=== PATIENT | female | born 1970 | race Caucasian/White ===

== ENCOUNTER → 2023-10-02 07:52 | Outpatient (REF) | payer OTHER, SELFPAY | LOC: HWRAD 07:52 | PROVIDERS: ATTENDING PHYSICIAN Nurse Practitioner Family | DX: M54.9 Dorsalgia, unspecified (principal); R10.11 Right upper quadrant pain; R10.9 Unspecified abdominal pain; G89.29 Other chronic pain; R07.81 Pleurodynia | CPT/HCPCS: 71111; 72072; 76700 ==

== ENCOUNTER 2024-04-05 23:23 | Emergency (ER) | payer OTHER, SELFPAY ==
[2024-04-05 23:35] VITALS: BP 157/91
[2024-04-06 00:03] VITALS: BP 145/72
[2024-04-06 00:30] LABS: % Basophils 0.7 % (0-2); % Eosinophils 0.8 % (0-6); % Immature Granulocytes 1.1 % (0-0.5); % Lymphocytes 23.6 % (20.5-51.1); % Monocytes 9.5 % (1.7-9.3); % Neutrophils 64.3 % (42.2-75.2); Absolute Basophils 0.1 10^3/uL (0-0.2); Absolute Eosinophils 0.1 10^3/uL (0-0.7); Absolute Immature Granulocytes 0.1 10^3/uL (0-0.05); Absolute Lymphocytes 2.2 10^3/uL (1.2-3.4); Absolute Monocytes 0.9 10^3/uL (0.1-0.6); Absolute Neutrophils 5.9 10^3/uL (1.4-6.5); Hematocrit 38.1 % (37.0-47.0); Mean Corp Hgb Conc. 34.1 g/dL (33.0-37.0); Mean Corpuscular Hgb 29.4 pg (27.0-31.0); Mean Corpuscular Volume 86.2 fL (81.0-99.0); Mean Platelet Volume 10.4 fL (7.4-10.4); Nucleated Red Blood Cells % 0 %; Platelet Count 236 10^3/uL (130-400); Red Blood Cell Count 4.42 10^6/uL (4.20-5.40); Red Cell Dist. Width 12.5 % (11.5-14.5); White Blood Cell Count 9.1 10^3/uL (4.8-10.8)
[2024-04-06 00:39] LABS: ALT (SGPT) 19 U/L (0-35); AST (SGOT) 25 U/L (14-36); Alkaline Phosphatase 55 U/L (38-126); Blood Urea Nitrogen 18 mg/dl (7-17); Calcium 9.5 mg/dl (8.4-10.2); Carbon Dioxide 23 mmol/L (22-30); Chloride 106 mmol/L (98-107); Glucose 102 mg/dl (70-99); Potassium 4.2 mmol/L (3.5-5.1); Sodium 142 mmol/L (135-145); Total Bilirubin 0.5 mg/dl (0.2-1.3); Total Protein 6.7 g/dl (6.3-8.2); eGFR > 60.00
[2024-04-06 00:45] LABS: Troponin I < 0.012 ng/ml
--- NOTE | 2024-04-06 00:57 | ED.GENMED ---
History of Present Illness
General
Chief Complaint: Heart Rate Problem
Source: patient
Exam Limitations: none
Time Seen by Provider: 04/06/24 00:18
History of Present Illness
History of Present Illness:
This is a 53 year old female that comes in with multiple complaints. State that her heart rate over the weekend has been elevated. States that she felt feverish and would then be flushed and sweat. States that today she tested for COVID and this was
negative. States that she went to bed and her heart was beating hard. States that she took her BP and it was 130/ something and her heart rate was 110. States that this is very high for her. States that she waited 10 min and tried this again and it
was still going up. States that when she was playing Pickle ball on Friday she had chest discomfort and SOB. States that this was in the center of her chest but she continued to play. States that her temp was 98.9 and this is a fever for her.
Patient also c/o an indentation on the right shoulder and then a bump. States that she noticed this 2 weeks ago and there is no pain and there was no injury. Denies any chills, abd pain, nausea, vomiting, diarrhea, headache, dizziness, urinary
burning.
Past History
Past History
ED Past Medical History: None; Negative Asthma, HTN, Hypercholesterolemia or NIDDM
ED Past Surgical History: None
Social History
Tobacco: Non-smoker
Alcohol: Occasional
Personal: Single
Living: alone
Review of Systems
Review of Systems
All Other Systems: ROS reviewed and negative except as documented in HPI and ROS
Constitutional: Reports fever and other (Sweats); Denies chills
EENT: Reports no symptoms
Respiratory: Reports trouble breathing; Denies cough
Cardiac: Reports chest pain
ABD/GI: Reports no symptoms; Denies abdominal pain, nausea, vomiting or diarrhea
: Reports no symptoms; Denies dysuria, frequency or urgency
Musculoskeletal: Reports no symptoms
Skin: Reports no symptoms
Neurological: Reports no symptoms; Denies dizzy or headache
Psychiatric: Reports no symptoms
Phy Exam
General Physical Exam
General Presentation: well appearing and no apparent distress
General age: appears stated age
General Skin: warm and dry
General Habitus: normal
General Mental: alert
General Hydration: dry mucous membranes
ENT Exam
ENT Exam: TM's normal, pharynx normal and neck supple
Eye Exam
Eye Exam: EOMI
Cardiovascular Exam
Cardiovascular Exam: regular rate/rhythm, no edema, no murmur and normal peripheral pulses
Pulmonary Exam
Pulmonary Exam: lungs clear, no respiratory distress, no rales, chest non tender, no crackles, no rhonchi, no wheezing and no cough
Gastrointestinal Exam
Gastrointestinal Exam: normal bowel sounds, non tender, soft, no organomegaly, no pulsatile mass and non distended
Musculoskeletal Exam
Musculoskeletal Exam: full ROM, no edema and other (questionable deltoid injury ,Partial tear, Patient can cross over and abduct with out any discomfort.)
Skin Exam
Skin Exam: normal color, warm/dry, no rash and no petechia
Psychiatric Exam
Psychiatric Exam: normal mood/affect
Course
Orders/Labs/Results
Orders:
Orders
04/05/24 23:45
Electrocardiogram (*1) Urgent
Reason for Study: Chest Pain
EKG- Treatment ONCE
04/05/24 23:53
Complete Blood Count/With Diff Urgent
Comprehensive Metabolic Panel Urgent
Troponin I Urgent
04/06/24 00:57
0.9% Sodium Chloride 1000 ml [Nss] 1,000 ml IV BOLUS
CR Chest - 2 Views Urgent
Comment:
Reason For Exam: cHEST PAIN, sob
Abnormal Lab Results
04/06/24
00:05
Abs Immat Gran (auto) 0.1 H 10^3/uL
(0-0.05)
Absolute Monos (auto) 0.9 H 10^3/uL
(0.1-0.6)
Immature Gran % 1.1 H %
(0-0.5)
Monocytes % 9.5 H %
(1.7-9.3)
BUN 18 H mg/dl
(7-17)
Glucose 102 H mg/dl
(70-99)
04/06/24 00:05
04/06/24 00:05
Slight Dehydration. Glucose nonfasting. troponin <0.012
Vital Signs
Initial and Last Documented VS:
Initial Vital Signs
Temp Pulse Resp BP Pulse Ox
98.4 F 115 20 157/91 98
04/05/24 23:35 04/05/24 23:35 04/05/24 23:35 04/05/24 23:35 04/05/24 23:35
Last Documented Vital Signs
Temp Pulse Resp BP Pulse Ox
98.4 F 76 11 125/71 98
04/05/24 23:35 04/06/24 01:30 04/06/24 01:30 04/06/24 01:00 04/06/24 01:00
MDM/Problems Addressed
Differential Diagnosis Includes:
Dehydration. cardiac syndrome.
MDM/Problems Addressed:
This is a 53 year old female that comes in with multiple complaints. states that she had chest pain on Friday with SOB, has had an elevated BP and HR that is not normal for her with sweats.
Will check labs, chest x-ray.
back into see patient. Explained that her blood work shows very slight Dehydration. Troponin is normal. Patient did not have any chest pain today only when playing Pickle ball. Chest x-ray is normal. Patient states that her heart rate is still
elevated for her. Will place patient on the cardiology hot line. Patient to return with any chest pain, SOB, or any other concerns.
Chronic conditions affecting care:
NA
Acute Exacerbation and/or Progression of Chronic Illness:
NA
*Radiology
Radiology exam reviewed: preliminary read by ED provider (Chest-Negative for any cardiopulmonary disease. )
*Pulse Oximetry
Patient hypoxic: no
*EKG
Interpreted by ED Provider?: Yes
Heart Rate: 92
Rate: normal
Rhythm: sinus
[place]: right axis deviation
Interval: normal interval
QRS Pattern: normal QRS
Ischemia: non-specific ST changes (aVF, V3, V4, V5, V6 )
*Financial Services Specialist Interpretation
Rate: normal
Heart Rate: 80
Rhythm: sinus
*Critical Care Note
Total Time (30-74mins, 75-104mins- exclusive of procedures): Not Applicable
ED Attending Note
-
Portions of this chart may have been created with voice recognition software.� Occasional wrong word or��sound alike� substitutions may have occurred due to the inherent limitations of voice recognition software.
Discharge Plan
Departure
Patient Disposition: Home (Routine Discharge)
Date of Disposition: 04/06/24
Time of Disposition: 02:11
Patient with high blood pressure during this ER visit?: Yes
Condition: Good
Covid-19: Not Applicable
Discharge Problem:
Chest pain, SOB (shortness of breath)
Instructions: Shortness of Breath, Adult ED, Chest Pain [facility] Follow Up, BLOOD PRESSURE, Chest Pain
Referrals:
UNKNOWN - PT DOES,NOT KNOW [Family Provider] -
Activity Restrictions/Additional Instructions:
As discussed, your blood work shows very slight Dehydration. Your troponin which is specific for the heart is normal. You have been place on the Cardiology hot line. This means that the Cardiology office will call you the next business day for
further evaluation. IF YOU HAVE INCREASED OR CHANGING CHEST PAIN, SHORTNESS OF BREATH, OR YOU HAVE ANY OTHER CONCERNS PLEASE RETURN TO THE EMERGENCY ROOM.
Interventions
Interventions:
*Risk Screen - Suicide Last Done: 04/05/24 23:35
*General Assessment Last Done: 04/05/24 23:35
*Neglect/Abuse Screening Last Done: 04/05/24 23:35
ED- Fall Risk Assessment Last Done: 04/05/24 23:35
*ED COVID-19 Vaccine History Last Done: 04/05/24 23:35
ED- Cardiac Assessment Last Done: 04/06/24 00:09
ED- Pulmonary Assessment Last Done: 04/06/24 00:09
Discharge Date and Time
Print Language: UPPER SORBIAN
[2024-04-06 01:00] VITALS: BP 125/71
[2024-04-06] MEDS: NSS 1000 IV (01:13)
== END 2024-04-06 02:19 | disposition home or self-care (01) ==
LOC: EMR 23:23
PROVIDERS: Emergency Medicine; EMERGENCY PHYSICIAN Emergency Medicine
DX: R06.02 Shortness of breath (principal); R07.89 Other chest pain; R61 Generalized hyperhidrosis; R22.31 Localized swelling, mass and lump, right upper limb; R50.9 Fever, unspecified; R00.0 Tachycardia, unspecified; R23.2 Flushing; R03.0 Elevated blood-pressure reading, without diagnosis of hypertension; E86.0 Dehydration
CPT/HCPCS: 99284; 96360; 71046; 80053; 84484; 85025; 93005

== ENCOUNTER → 2024-05-28 14:21 | Outpatient (REF) | payer OTHER, SELFPAY | LOC: RCS 14:21 | PROVIDERS: ATTENDING PHYSICIAN Internal Medicine Interventional Cardiology | DX: R07.89 Other chest pain (principal); R06.09 Other forms of dyspnea; R00.2 Palpitations | CPT/HCPCS: 93017 ==

== ENCOUNTER → 2024-08-02 06:42 | Outpatient (REF) | payer OTHER, SELFPAY | LOC: RAD 06:42 | PROVIDERS: ATTENDING PHYSICIAN Internal Medicine; FAMILY PHYSICIAN Family Medicine | DX: E05.00 Thyrotoxicosis with diffuse goiter without thyrotoxic crisis or storm (principal) | CPT/HCPCS: 76536 ==